=== PATIENT | male | born 1950 | race Caucasian/White ===

== ENCOUNTER 2017-05-07 00:57 | Day surgery (SDC) | payer OTHER ==
[2017-05-07] VITALS (16 sets, daily range): BP systolic 106–144; BP diastolic 64–81; PULSE 53–64; RESP 11–20; O2SAT 93–96
[~2017-05-07] VITALS: Ht 177.8 cm; Wt 102.0 kg
[~2017-05-07 00:57] MED LIST: ASPI325T32 PO; IMI100 PO; LISI-567 PO; METO50TA7 PO; NITR1PAT64 TRANSDERM; ZOLP10TA5 PO
[2017-05-07] MEDS ORDERED: 0.9% Sodium Chloride 1,000 ML IV ONE (08:03)
[2017-05-07 11:27] LABS: BASOPHILS % (AUTO) 0.7 % (0-3); EOSINOPHILS % (AUTO) 8.4 % (0-5); MONOCYTES % (AUTO) 7.2 % (4-12); Mean Corpuscular Hemoglobin 29.6 pg (27.0-35.0); Mean Corpuscular Volume 87.2 fL (81-100); NEUTROPHILS % (AUTO) 51.4 % (40-74); Platelet Count 181 bil/L (150-400)
--- NOTE | 2017-05-07 11:34 | NUR ---
Patient admitted to [facility] pre cardiac catheterization. He has been NPO since 05/06 11PM, consent is signed and labs drawn with IV starts. at bedside.
[2017-05-07] MEDS ORDERED: Heparin 1,000 Unit/mL 10 mL Inj ONE (12:47)
[2017-05-07] MEDS ORDERED: Heparin 1,000 Units/500 mL NS Premix IV ONE (12:47)
[2017-05-07] MEDS ORDERED: Nitroglycerin 50,000 mcg/250 mL D5W Premix IV ONE (12:47)
[2017-05-07] MEDS ORDERED: Heparin 10,000 Unit/1,000 mL NS Premix IV ONE ×2 (12:48→13:36)
[2017-05-07] MEDS ORDERED: fentaNYL-PF 50 mCg/mL 2 mL Inj ONE (12:52)
[2017-05-07] MEDS ORDERED: 0.9% Sodium Chloride 250 ML ONE (13:18)
[2017-05-07] MEDS ORDERED: Adenosine 3 mg/mL 2 mL Inj ONE (13:18)
[2017-05-07] MEDS ORDERED: CLOP75TA3 PO (14:31)
[2017-05-07] MEDS ORDERED: 0.9% Sodium Chloride 250 ML IV PRN (14:37)
[2017-05-07] MEDS ORDERED: 0.9% Sodium Chloride 1,000 ML IV PRN (14:37)
--- NOTE | 2017-05-07 14:38 | DI95 ---
[address] [address] INTERVENTIONAL CARDIAC CATHETERIZATION PATIENT: TEA MADISON : 1950 MR#: [id number] ADMIT: 05/07/2017 JOB ID: [id number] PROCEDURE: 1. Selective right and left coronary angiography. 2. Left heart catheterization. 3. Percutaneous intervention on the left anterior descending (LAD). 4. Fractional flow reserve (FFR) of the left anterior descending (LAD). INDICATION: Recurrent chest pain. Abnormal stress test. PROCEDURAL DETAILS: The reader and the coders are referred to the procedure log for complete details. Briefly, it was done via right femoral approach using a 6-Algerian system initially, which was later up-sized to 7-Algerian. ANGIOGRAPHIC FINDINGS: 1. Left main: No significant disease 2. LAD is a moderate caliber transapical vessel. In its mid segment it has a long tubular stenosis of about 60%. The first major diagonal in its mid segment has 80% to 90% lesion. The second major diagonal has an ostial 80% lesion. There is a 70% to 80% lesion in the apical LAD. 3. Circumflex is nondominant. It gives off a rather large 1st obtuse marginal branch. Following that, the vessel is totally occluded. The distal circumflex is seen via intracoronary as well as [id number] collaterals. 4. Right coronary artery is dominant. It has ostial 30% lesion. The rest of the vessel has mild luminal irregularities. No critical stenosis is noted. 5. Left heart catheterization revealed an LVEDP of 21. There was no gradient upon pullback. Hand injection suggested normal contractility. 6. LAD intervention: We then proceeded ahead with an intervention on the LAD. The sheath was up-sized to 7-Algerian. A Voda 7-Algerian guide was used. FFR wire was placed in the LAD; FFR in LAD was 0.69. 7. Runthrough wire was placed in the first diagonal. The first diagonal was balloon angioplastied and then stented with a 3.0 x 12 mm Xience drug-coated stent with excellent angiographic results. We then took out the Runthrough wire and placed it into the second diagonal. The ostium of the second diagonal was then balloon dilated with a 2.0 balloon. The mid LAD was also balloon dilated with the same 2.0 balloon. Following that, the LAD was stented with a 3.0 x 28 mm drug-coated stent. Both these stents were Xience Alpine stents. Final angiographic results were excellent. In summary, successful intervention on the LAD and diagonals. The patient is advised to antiplatelet therapy for at least six months post procedure.
[2017-05-07] MEDS ORDERED: Atropine 1 mg/10 mL (Code) Syringe IVPUSH PRN (14:40)
[2017-05-07] MEDS ORDERED: Ondansetron 2 mg/mL 2 mL Inj IVPUSH PRN (14:40)
--- NOTE | 2017-05-07 16:45 | NUR ---
transfer to [facility] Pt had stable recovery post heart cath with PCI, VSS and WNL on RA, groin site soft non tender. Pt stated verbal understanding of activity restrictions and changes to home medications. Report given to Jazmin Aguilar RN, pt transferred to room 2007 with belongings at approximately 1640
[2017-05-08 03:39] VITALS: BP 125/70; PULSE 63; RESP 18; O2SAT 96
[2017-05-08 05:37] VITALS: PULSE 63
--- NOTE | 2017-05-08 06:04 | NUR ---
Patient stable overnight, able to get some sleep. Denies pain, R groin site intact with small amount of drainage on gauze. Patient up to bathroom independently. RA, SBrady to SR. Occasional loose stools, continue to monitor. Possible home today.
[2017-05-08 08:39] VITALS: PULSE 68
[2017-05-08 09:24] VITALS: BP 146/84; PULSE 75; RESP 16; O2SAT 95
--- NOTE | 2017-05-08 10:25 | PCM.DIMED ---
Discharge Instructions Date of Service May 08, 2017 Dates of Hospitalization Medication Instructions Additional med instructions Be sure to take your clopidogrel (Plavix) today and every day to avoid clotting on the stents. Diet Discharge Diet: Heart Healthy Activity Discharge Activity: No restrictions Call your provider Call your provider for: Chest pain Patient Instructions Provider: Hill Brown MD Follow-up in: Other Luis Alberto Carpio MD May 08, 2017 10:25
--- NOTE | 2017-05-08 12:48 | NUR ---
Discharge: Discussed discharge instructions and medications with patient and his . Hard copy Rx was handed to patient. Pt verbalized understanding of follow up appointment. Pt is able to ambulate and dress self without report of CP, SOB, dizziness or oozing from groin site. R groin site is soft, non tender to touch, small amount of dry sanguineous drainage on dressing, pedal pulses palpable. IVs DCd intact by RN. SYKES. Pt exited unit on foot and was walked down to his personal vehicle with all personal belongings and transported home by his .
--- NOTE | 2017-05-08 14:52 | DIS ---
[address] [address] DISCHARGE SUMMARY PATIENT: TEA MADISON : 1950 MR#: [id number] ADMIT: 05/07/2017 JOB ID: [id number] DIS: 05/08/2017 REASON FOR ADMISSION: The patient is a 66-year-old gentleman who presented yesterday for AN elective angioplasty and stenting to his LAD and diagonal vessels. HOSPITAL COURSE: He underwent uneventful intervention with a 3 x12 mm Xience drug coated stent to the first diagonal vessel, balloon angioplasty to the second diagonal vessel, and stenting to the mid LAD with a 3 x 28 mm drug coated stent. The patient tolerated the procedure well, without difficulty or complications. He had an uneventful night. He has had no groin issues related to his arteriotomy site and no recurrent chest discomfort or arm numbness or dyspnea. Dr. Brown has written out a prescription for his clopidogrel and he will be instructed to continue all of the rest of his current home medications and is scheduled to follow up with Dr. Brown in our office on June 18. Those details will be included with his discharge instructions. The patient looks well today. Has no groin issues, no hematoma. His questions were answered and he will be discharged home to follow up as scheduled with Dr. Brown.
== END 2017-05-08 12:35 | disposition home or self-care (01) ==
LOC: SOUO 00:57 → PCC 17:10 → SOUO 05-08 12:35
PROVIDERS: ATTEND Internal Medicine Cardiovascular Disease
DX: I25.10 Atherosclerotic heart disease of native coronary artery without angina pectoris (principal); I25.82 Chronic total occlusion of coronary artery; I10 Essential (primary) hypertension; Z79.82 Long term (current) use of aspirin
CPT/HCPCS: 36415; 80048; 80061; 85025; 93005; 93458; 93571; 99152; 99153; C1725; C1760; C1769; C1874; C1887; C9600; C9601; J0153; J1200; J1644; J2060; J2250; J3010; Q9967